=== PATIENT | male | born 1945 ===

== ENCOUNTER 2018-06-05 08:10 | Outpatient (CLI) | payer OTHER | END 2018-06-05 08:11 | disposition home or self-care (01) | LOC: C.CARD 08:10 | DX: R07.9 Chest pain, unspecified (principal) ==

== ENCOUNTER 2018-06-14 12:15 | Outpatient (CLI) | payer OTHER | END 2018-06-14 12:16 | disposition home or self-care (01) | LOC: C.CARD 12:15 ==